=== PATIENT | male | born 1975 | race Caucasian/White ===

== ENCOUNTER → 2018-06-18 | Outpatient (CLI) | payer OTHER ==
[~2018-06-18] MED LIST: CLC100 PO; OXYC7.5T62 PO
[2018-06-18 15:04] LABS: HEMATOCRIT 42.3 % (42-52); HEMOGLOBIN 14.2 g/dL (14.0-18.0); MEAN CELL VOLUME 89.4 fL (80-100); MEAN CORPUSCULAR HGB CONC 33.6 g/dl (32-36); MEAN PLATELET VOLUME 9.7 fL (7.4-10.4); PLATELET COUNT 292 K/uL (130-400); RED CELL DISTRIBUTION WIDTH CV 14.2 % (11.5-14.5); RED CELL DISTRIBUTION WIDTH SD 46.5 fL (36.4-46.3)
--- NOTE | 2018-06-18 15:36 | DIAGNOSTIC IMAGING REPORT ---
(ERIK/BLAD)RETROPERITON COMP HISTORY: Renal insufficiency Z90.5 Solitary kidney, [id number] Chronic kidney disease, sta COMPARISON: None. FINDINGS: Right kidney: Prior nephrectomy Left kidney: 12.4 cm maximum dimension. No evidence for hydronephrosis. Normal corticomedullary differentiation and cortical thickness. Bladder: No bladder wall thickening. The bilateral ureteral jets were identified. IMPRESSION: Normal left renal ultrasound. Prior right nephrectomy. The above report was generated using voice recognition software. It may contain grammatical, syntax or spelling errors. Electronically signed by: Maury Napoles M.D. 06/18/2018 3:35 PM Dictated Date/Time: 06/18/2018 3:34 PM
[2018-06-18 15:40] LABS: ALBUMIN 3.6 gm/dl (3.4-5.0); ALKALINE PHOSPHATASE 68 U/L (45-117); ALT/SGPT 28 U/L (12-78); AST/SGOT 15 U/L (15-37); BLOOD UREA NITROGEN 11 mg/dl (7-18); CALCIUM 8.9 mg/dl (8.5-10.1); CARBON DIOXIDE 27 mmol/L (21-32); CREATININE 1.08 mg/dl (0.60-1.40); GLUCOSE 94 mg/dl (70-99); POTASSIUM 4.1 mmol/L (3.5-5.1); SODIUM 137 mmol/L (136-145); TOTAL PROTEIN 7.4 gm/dl (6.4-8.2)
== END | disposition home or self-care (01) ==
LOC: C.ULTR 14:14
PROVIDERS: ATTEND Internal Medicine Nephrology
DX: N18.3 Chronic kidney disease, stage 3 (moderate) (principal); Z90.5 Acquired absence of kidney

== ENCOUNTER 2023-03-15 20:12 | Observation (INO) ==
[2023-03-15 21:05] LABS: Albumin Globulin Ratio 1.3 (0.9-2); BUN Creatinine Ratio 9.1 (10-20); Bilirubin,Total 0.3 mg/dl (0.2-1.0); Creatinine Clr Calc Pharmacy 87.9 ml/min; Est GFR (Non-African American) 69.9 ml/min; Globulin 3.1 gm/dl (2.5-4.0); Potassium 3.4 mmol/L (3.5-5.1); Total Protein 7.1 gm/dl (6.0-8.3)
[2023-03-15 21:11] LABS: Troponin I High Sensitivity 5.2 pg/ml (0-20)
[2023-03-15 21:28] LABS: Hemoglobin 7.4 g/dl (14.0-18.0); Mean Corpuscular Hemoglobin 26.8 pg (25.0-34.0); Mean Corpuscular Hgb Conc 30.8 g/dL (32.0-36.0); Mean Platelet Volume 9.6 fL (9.4-12.4); Platelet Count 525 K/uL (130-400); RDW Coefficient of Variation 16.4 % (11.5-14.5); RDW Standard Deviation 51.2 fL (36.4-46.3); Red Blood Count 2.76 M/uL (4.70-6.10); White Blood Count 7.87 K/ul (4.8-10.8)
--- NOTE | 2023-03-15 22:44 | Emergency Department Note ---
Impression & Plan Rectal bleeding, Symptomatic anemia, H/O renal cell cancer ED Provider Note NAME: JASPAL HOUSTON AGE: 47 SEX: M : 1975 ARRIVES VIA: Walk-In INFORMANT: Patient, ED PROVIDER(S): Robinson Brink MD CHIEF COMPLAINT: Rectal bleeding MEDICAL DECISION MAKING: Patient presents due to concern for GI bleeding. IV was established blood work was obtained patient was consented for unit of PRBCs. The patient states that he is not actively bleeding at this time of what he describes sounds like this could be hemorrhoidal bleed. No active bleeding present per patient. The patient did have anemia significant for his symptoma tic anemia with hemoglobin of 7. The patient denies any blood thinners. Patient was ordered PPI bolus and drip. I did speak with the on-call hospital service Dr. Villanueva the patient was admitted to medicine service. Critical Care: I have personally spent 35 minutes of critical care time in direct management of this patient. This includes bedside care, interpretation of diagnostic studies, and testing, discussion with consultants, patient, and family members, and other require inpatient management activities. This 35 minutes is in excess of all separately billable procedures. Prior /Outside records reviewed: None Differential diagnosis: Diverticulosis, AVM, coagulopathy, colitis, inflammatory bowel disease, malignancy, [place] tear, esophagitis, peptic ulcer disease, variceal bleed, gastritis, epistaxis, fissure, hemorrhoids, as well as other pathologies. Diagnostics, as interpreted by me: ECG: Normal sinus rhythm, rate 95, wide QRS, right bundle branch block pattern, no ST elevations. Cardiac monitoring: An order was placed for continuous cardiac monitoring. The monitor shows a rate of 97 with sinus rhythm. Patient was placed on pulse oximetry Medical decision rules: None Imaging studies: See below HPI: Patient presents due to concern for GI bleeding. Patient states that the bright red blood and he states that he has no active bleeding. The patient states that this has been occurring over the last month. Patient states that he did try to take some iron pills but he would develop some migraines. The patient denies any NSAID use. Patient denies any alcohol tobacco or drug use. The patient denies any fevers or chills. No nausea vomiting. The patient denies any blood thinner use. No prior history of colonoscopy. The patient denies any known history of IBD or family history of colon cancer. PAST MEDICAL HISTORY: See Below PAST SURGICAL HISTORY: See Below SOCIAL HISTORY: See Below HOME MEDICATIONS: See Below ALLERGIES: See Below VITALS: See Below PHYSICAL EXAMINATION: GENERAL: Wearing glasses, nontoxic. EYE EXAM: Normal conjunctiva. PERRL, no anisocoria and EOM's grossly intact w/o pain. NECK: Supple, no nuchal rigidity, no adenopathy, non-tender. No signs of meningismus. FROM of the neck with good chin to chest and neck extension. No stridor. LUNGS: Clear to auscultation. Normal chest wall mechanics. HEART: NSR, no MRG. ABDOMEN: Abdomen soft, non-tender, no masses, no rebound or guarding. BACK: No CVA TTP. SKIN: No rashes and no bruising. UPPER EXTREMITIES: Upper extremities are grossly normal. LOWER EXTREMITIES: Grossly normal, no edema. NEURO EXAM: A&O x3, cranial nerves II-XII grossly intact, normal speech, moves all 4 extremities. Past Med/Surg History Medical History Cholelithiasis Cholesterolosis of gallbladder Chronic back pain Chronic kidney disease, stage II (mild) Clear cell renal cell carcinoma History of difficult intubation RIGHT LAP HAND ASSISTED NEPHRECTOMY= 05/01/18= NO VIEW WITH DL MAC 3. GLIDESCOPE #4 ATTEMPTED BY INTELLIGENCE SENIOR SERGEANT AND COULD NOT PASS ETT --> MDA SUCCESSFUL GLIDESCOPE #4 WITH GRADE 1 VIEW ETT 8.0 AT [facility] Migraine Obesity Renal cancer S/P RIGHT NEPHRECTOMY 04/2018; NO CHEMO OR RADIATION Vitamin D deficiency Surgical History History of cholecystectomy Hx of kidney removal Family History Family/Other Family history of diabetes mellitus Grandmother Family history of diabetes mellitus Other Cancer Social History Smoking Status: Never smoker Second Hand Exposure: Yes; Do You Dip or Chew Tobacco: Yes; Hx Alcohol Use: No Hx Substance Use: Yes Substance Use Type Other:: medically marijuana Preferred Language: Danish Communication Ability: Effective Visual Impairment: No Limitations Welt Pocket Machine Operator Required: No Beliefs That Will Affect Care: None Current Living Situation: Family Feels Safe at Home: Yes Safety Concerns: Feels Safe At This Time Assistive Devices: None Allergies Allergies Allergy/AdvReac Type Severity Reaction Status Date / Time No Known Drug Allergies Allergy Unknown Verified 03/15/23 22:45 Home Meds Home Medications Medication Instructions Recorded Confirmed multivitamin 1 tab PO DAILY 03/15/23 03/15/23 Previous Rx's Medication Instructions Recorded pantoprazole 40 mg tablet,delayed 40 mg PO DAILY #90 tabs 02/20/23 release Results & Data (ED) Vital Signs Vital Signs - 24 hr 03/15/23 20:16 03/15/23 23:04 03/15/23 23:04 Temperature 36.8 C Temperature Source Temporal Artery Scan Pulse Rate 122 H 98 H 98 H Pulse Rate from SpO2 Sensor 96 H Respiratory Rate 18 21 Respiratory Effort / Characteristics Non-Labored Spontaneous Respiratory Depth Normal Respiratory Pattern Regular Blood Pressure 156/89 H Blood Pressure Mean 111 Pulse Oximetry 100 100 Oxygen Delivery Method Room Air Sepsis Recent Fever Within 48 Hours No Sepsis New/Unexplained Change in Mental Status No Sepsis Action Taken by Nursing No Action Required 03/15/23 23:30 03/16/23 00:00 03/16/23 00:30 Temperature Temperature Source Pulse Rate 82 85 78 Pulse Rate from SpO2 Sensor 80 92 H 80 Respiratory Rate 13 14 8 L Respiratory Effort / Characteristics Respiratory Depth Respiratory Pattern Blood Pressure 139/104 H 163/106 H 139/97 Blood Pressure Mean 115 125 111 Pulse Oximetry 100 100 100 Oxygen Delivery Method Sepsis Recent Fever Within 48 Hours Sepsis New/Unexplained Change in Mental Status Sepsis Action Taken by [facility] Medications Current Medication List: was personally reviewed by me Laboratory Data Attestation: I reviewed the patient's lab results. 03/15/23 20:38 03/15/23 20:38 Lab Results 03/15/23 03/15/23 03/15/23 Range/Units 20:38 20:38 20:38 WBC 7.87 (4.8-10.8) K/ul RBC 2.76 L (4.70-6.10) M/uL Hgb 7.4 L (14.0-18.0) g/dl Hct 24.0 L (42.0-52.0) % MCV 87.0 (80.0-100.0) fL MCH 26.8 (25.0-34.0) pg MCHC 30.8 L (32.0-36.0) g/dL RDW Std Deviation 51.2 H (36.4-46.3) fL RDW Coeff of Linda 16.4 H (11.5-14.5) % Plt Count 525 H (130-400) K/uL MPV 9.6 (9.4-12.4) fL PT Cancelled INR Cancelled APTT Cancelled PTT Ratio Cancelled Sodium (136-145) mmol/L Potassium (3.5-5.1) mmol/L Chloride (98-107) mmol/L Carbon Dioxide (21-32) mmol/L Anion Gap (3-11) BUN (6-23) mg/dl Creatinine (0.6-1.4) mg/dl Est Cr Clr Drug Dosing ml/min Est GFR ( Amer) ml/min Est GFR (Non-Af Amer) ml/min BUN/Creatinine Ratio (10-20) Glucose (70-99(Fasting)) mg/dl Calcium (8.6-10.3) mg/dl Total Bilirubin (0.2-1.0) mg/dl AST (13-39) U/L ALT (7-52) U/L Alkaline Phosphatase (34-104) U/L Troponin I High Sens (0-20) pg/ml Total Protein (6.0-8.3) gm/dl Albumin (3.4-5.0) gm/dl Globulin (2.5-4.0) gm/dl Albumin/Globulin Ratio (0.9-2) Blood Type O Positive Blood Type Recheck Antibody Screen NEGATIVE Crossmatch See Detail 03/15/23 03/16/23 03/16/23 Range/Units 20:38 00:01 00:01 WBC (4.8-10.8) K/ul RBC (4.70-6.10) M/uL Hgb (14.0-18.0) g/dl Hct (42.0-52.0) % MCV (80.0-100.0) fL MCH (25.0-34.0) pg MCHC (32.0-36.0) g/dL RDW Std Deviation (36.4-46.3) fL RDW Coeff of Linda (11.5-14.5) % Plt Count (130-400) K/uL MPV (9.4-12.4) fL PT 10.9 INR 1.0 APTT < 20.0 L PTT Ratio 0.7 Sodium 138 (136-145) mmol/L Potassium 3.4 L (3.5-5.1) mmol/L Chloride 106 (98-107) mmol/L Carbon Dioxide 24 (21-32) mmol/L Anion Gap 8 (3-11) BUN 11 (6-23) mg/dl Creatinine 1.21 (0.6-1.4) mg/dl Est Cr Clr Drug Dosing 87.9 ml/min Est GFR ( Amer) 81.0 ml/min Est GFR (Non-Af Amer) 69.9 ml/min BUN/Creatinine Ratio 9.1 L (10-20) Glucose 129 H (70-99(Fasting)) mg/dl Calcium 9.0 (8.6-10.3) mg/dl Total Bilirubin 0.3 (0.2-1.0) mg/dl AST 17 (13-39) U/L ALT 10 (7-52) U/L Alkaline Phosphatase 61 (34-104) U/L Troponin I High Sens 5.2 (0-20) pg/ml Total Protein 7.1 (6.0-8.3) gm/dl Albumin 4.0 (3.4-5.0) gm/dl Globulin 3.1 (2.5-4.0) gm/dl Albumin/Globulin Ratio 1.3 (0.9-2) Blood Type Blood Type Recheck O Positive Antibody Screen Crossmatch Administered Medications Discontinued Medications Pantoprazole Sodium (Protonix Bolus/Drip) 0 mls @ 1 mls/hr IV ONE STA Stop: 03/15/23 22:48 Last Admin: 03/16/23 04:45 Dose: Not Given Documented By: MYRNA Pantoprazole Sodium 80 mg/ (Dextrose) 120 mls @ 400 mls/hr IV NOW ONE Stop: 03/15/23 23:04 Last Infusion: 03/16/23 00:32 Dose: 0 mls/hr Documented By: Admin: 03/15/23 23:30 Dose: 400 mls/hr Documented By: JEROMY Pantoprazole Sodium 40 mg/ (Dextrose) 100 mls @ 20 mls/hr IV Q5H [facility] Stop: 04/14/23 23:14 Last Admin: 03/16/23 05:35 Dose: Not Given Documented By: Infusion: 03/16/23 04:44 Dose: 0 mg/hr, 0 mls/hr Documented By: Admin: 03/15/23 23:47 Dose: 8 mg/hr, 20 mls/hr Documented By: JEROMY Potassium Chloride (Potassium Chloride Crtab 20 Meq Tabcr) 20 meq PO NOW STA Stop: 03/16/23 04:40 Last Admin: 03/16/23 05:07 Dose: Not Given Documented By: MYRNA Discharge Plan Visit Data Chief Complaint: Rectal Bleed Stated Complaint: BLEEDING,DIZZY, LIGHT HEAD,VOMIT,UNABLE TO EAT ED Provider: Robinson Brink Discharge Problem: Rectal bleeding, Symptomatic anemia, H/O renal cell cancer Patient Disposition: Admitted As Inpatient Discharge Instructions Interventions: ED Discharge Assessment Last Done: 03/16/23 04:03
[2023-03-15] MEDS ORDERED: SODIUM CHLORIDE 0.9% 250 ML IV PRN (22:47)
[2023-03-15] MEDS ORDERED: PANTOprazole 80 MG in DEXTROSE 5% 100 ML IV ONE (22:47)
[2023-03-15] MEDS ORDERED: PANTOPRAZOLE BOLUS/DRIP 1 EACH IV STA (22:47)
[2023-03-15] MEDS: PANTOprazole 40 MG in DEXTROSE 5% 100 ML IV SCH (23:47)
--- NOTE | 2023-03-16 00:32 | History & Physical Report ---
Date of Service March 16, 2023 Assessment & Plan (1) Rectal bleeding: Plan: 47-year-old male presenting with 2 weeks of ongoing rectal bleeding and symptomatic anemia Hgb = 7.4, HCT = 24. Last checked 02/24/2023 Hgb = 11.7, HCT = 36.1. Patient does report constipation with straining. Symptomatic anemia with dizziness, lightheadedness and syncope reported. Admit to medical with telemetry Check CT of the abdomen Keep n.p.o. Maintain 2 large-bore IVs Transfuse 2 units PRBCs now Monitor CBC. Additional transfusions for ongoing bleed, symptomatic anemia or hemoglobin less than 7 GI consultation appreciated F/E/NHep-Lock, potassium repletion with K 20 mEq p.o., n.p.o. for now ProphylaxisSCDs to bilateral lower extremities Codef[place] per discussion with patient Dispositionadmit to medical with telemetry Patient with history of renal cell carcinoma. Reports that he is to follow-up with oncology. Appointment has not been scheduledpatient somewhat lost to follow-up during the COVID-19 pandemic. Should reestablish with oncology and follow as directed History of Present Illness Chief Complaint: Rectal bleeding Primary Care Provider: Benigno Santo III, MARIA ESTHER Mr. Mcmullen is a 47-year-old male with history of renal cell carcinoma status post nephrectomy presenting with hematochezia. Patient reports passage of dark, thick blood from his rectum for the last 1-1/2 to 2 weeks. He reports that the blood fills the toilet bowl. He has been trying not to have a bowel movement because he is afraid of bleeding. Has some rectal pain with defecation but denies abdominal discomfort. Also reports dizziness, lightheadedness, dyspnea on exertion and several episodes of syncope over the last several days. He has had nausea with nonbloody emesis as well on occasion In the ER he is afebrile, hemodynamically stable. Laboratory work-up with anemia Hgb = 7.4 Allergies Allergy/AdvReac Type Severity Reaction Status Date / Time No Known Drug Allergies Allergy Unknown Verified 03/15/23 22:45 Home Medications Medication Instructions Recorded Confirmed Type pantoprazole 40 mg tablet,delayed 40 mg PO DAILY #90 tabs 02/20/23 03/15/23 Rx release multivitamin 1 tab PO DAILY 03/15/23 03/15/23 History Past Med/Surg History Medical History Cholelithiasis Cholesterolosis of gallbladder Chronic back pain Chronic kidney disease, stage II (mild) Clear cell renal cell carcinoma History of difficult intubation RIGHT LAP HAND ASSISTED NEPHRECTOMY= 05/01/18= NO VIEW WITH DL MAC 3. GLIDESCOPE #4 ATTEMPTED BY INSTRUMENT MAKER AND COULD NOT PASS ETT --> MDA SUCCESSFUL GLIDESCOPE #4 WITH GRADE 1 VIEW ETT 8.0 AT [facility] Migraine Obesity Renal cancer S/P RIGHT NEPHRECTOMY 04/2018; NO CHEMO OR RADIATION Vitamin D deficiency Surgical History History of cholecystectomy Hx of kidney removal Family History Family/Other Family history of diabetes mellitus Grandmother Family history of diabetes mellitus Other Cancer Social History Smoking Status: Never smoker Second Hand Exposure: Yes; Do You Dip or Chew Tobacco: Yes (1 CAN PER 2-3 DAYS); Hx Alcohol Use: Yes (NOT PAST 6 MONTHS-WAS DAILY OR Q DAYS) Alcohol type: beer Hx Substance Use: No Preferred Language: Mexican Communication Ability: Effective Visual Impairment: No Limitations Cat Tender Required: No Beliefs That Will Affect Care: None Current Living Situation: Parent Feels Safe at Home: Yes Assistive Devices: Glasses Review of Systems Review of Systems: All systems reviewed & are unremarkable except as noted in HPI & below Physical Exam Physical Exam: General: patient resting comfortably, NAD, non-toxic in appearance, AA&O x 4 Skin: pale, warm, dry, intact, no rashes or lesions HEENT: NC/AT, PERRL, EOMI, anicteric sclera, conjunctiva without injection, external ear normal to inspection and nontender, nares patent, moist mucus membranes, dentition intact, no oropharyngeal lesions, neck supple, trachea m idline, no LAD, no thyromegaly, no JVD Heart: +S1/S2, regular, no m/r/g Lungs: equal air entry bilaterally, no rales/rhonchi/wheezes Abd: +BS, soft, NT/ND, no masses/organomegaly/ascites Ext: warm, 2+ pulses in UE/LE bilaterally, no clubbing/cyanosis or edema Neuro: nonfocal, patient AA&O x 4, speech intact, no facial droop, moving all extremities on command with equal strength 5/5 Results & Data Results & Data Vital Signs (Past 12 Hours) Vital Signs Temp Pulse Resp BP Pulse Ox O2 Del Method 03/15/23 23:04 98 H 03/15/23 20:16 36.8 C 122 H 18 156/89 H 100 Room Air Laboratory Results Laboratory Results WBC 7.87 K/ul (4.8-10.8) 03/15/23 20:38 RBC 2.76 M/uL (4.70-6.10) L 03/15/23 20:38 Hgb 7.4 g/dl (14.0-18.0) L 03/15/23 20:38 Hct 24.0 % (42.0-52.0) L 03/15/23 20:38 MCV 87.0 fL (80.0-100.0) 03/15/23 20:38 MCH 26.8 pg (25.0-34.0) 03/15/23 20:38 MCHC 30.8 g/dL (32.0-36.0) L 03/15/23 20:38 RDW Std Deviation 51.2 fL (36.4-46.3) H 03/15/23 20:38 RDW Coeff of Linda 16.4 % (11.5-14.5) H 03/15/23 20:38 Plt Count 525 K/uL (130-400) H 03/15/23 20:38 MPV 9.6 fL (9.4-12.4) 03/15/23 20:38 PT 10.9 Seconds (9.0-12.0) 03/16/23 00:01 INR 1.0 (0.9-1.1) 03/16/23 00:01 APTT < 20.0 Seconds (21.0-31.0) L 03/16/23 00:01 PTT Ratio 0.7 03/16/23 00:01 Sodium 138 mmol/L (136-145) 03/15/23 20:38 Potassium 3.4 mmol/L (3.5-5.1) L 03/15/23 20:38 Chloride 106 mmol/L (98-107) 03/15/23 20:38 Carbon Dioxide 24 mmol/L (21-32) 03/15/23 20:38 Anion Gap 8 (3-11) 03/15/23 20:38 BUN 11 mg/dl (6-23) 03/15/23 20:38 Creatinine 1.21 mg/dl (0.6-1.4) 03/15/23 20:38 Est Cr Clr Drug Dosing 87.9 ml/min 03/15/23 20:38 Est GFR ( Amer) 81.0 ml/min 03/15/23 20:38 Est GFR (Non-Af Amer) 69.9 ml/min 03/15/23 20:38 BUN/Creatinine Ratio 9.1 (10-20) L 03/15/23 20:38 Glucose 129 mg/dl (70-99(Fasting)) H 03/15/23 20:38 Calcium 9.0 mg/dl (8.6-10.3) 03/15/23 20:38 Total Bilirubin 0.3 mg/dl (0.2-1.0) 03/15/23 20:38 AST 17 U/L (13-39) 03/15/23 20:38 ALT 10 U/L (7-52) 03/15/23 20:38 Alkaline Phosphatase 61 U/L (34-104) 03/15/23 20:38 Troponin I High Sens 5.2 pg/ml (0-20) 03/15/23 20:38 Total Protein 7.1 gm/dl (6.0-8.3) 03/15/23 20:38 Albumin 4.0 gm/dl (3.4-5.0) 03/15/23 20:38 Globulin 3.1 gm/dl (2.5-4.0) 03/15/23 20:38 Albumin/Globulin Ratio 1.3 (0.9-2) 03/15/23 20:38 SARS-CoV-2, RNA, NAAT NEGATIVE (NEGATIVE) 03/16/23 02:34 Blood Type O Positive 03/15/23 20:38 Blood Type Recheck O Positive 03/16/23 00:01 Antibody Screen NEGATIVE 03/15/23 20:38 Crossmatch See Detail 03/15/23 20:38 Code Status & VTE Plan VTE Prophylaxis Plan VTE Prophylaxis will be ordered: Yes PG Care Time/CCT Total # of Minutes Spent Total Time Spent with Patient: Total time spent is greater than 50% in coordination of care (as documented) at patient's floor/unit and/or counseling patient: Coding Level of Care Code 52787 INT INP/OBS CARE 2/55MIN Diagnoses Rectal bleeding K62.5
[2023-03-16 00:58] LABS: Partial Thromboplastin Ratio 0.7; Prothrombin Time 10.9 Seconds (9.0-12.0)
[2023-03-16 01:31] LABS: Partial Thromboplastin Time < 20.0 Seconds (21.0-31.0)
[2023-03-16] MEDS ORDERED: POTASSIUM CHLORIDE CRTAB 20 MEQ TABCR PO STA (04:39)
[2023-03-16] MEDS ORDERED: SODIUM CHLORIDE 0.9% 250 ML IV PRN ×2 (04:39→18:15)
[2023-03-16] MEDS ORDERED: ONDANSETRON INJ 2 MG/ML 2 ML VIAL IV PRN (04:39)
[2023-03-16] MEDS ORDERED: ACETAMINOPHEN 325 MG TAB PO PRN (04:39)
[2023-03-16] MEDS: PANTOprazole 40 MG in DEXTROSE 5% 100 ML IV SCH (05:35)
--- NOTE | 2023-03-16 08:47 | Gastrointestinal Consultation ---
I have interviewed and examined the patient and reviewed the medical records as well as discussed with MARIA ESTHER Owusu about her findings and plan Subjective: Two weeks of painless rectal bleeding only with bowel movements Physical exam: Abdomen-soft, nontender, normal bowel sounds Chart review: Hgb 7.[address] pending I agree with the assessment as outlined in this note. I add in that although it is rare that hemorrhoids will lead to anemia his description of his bleeding is consistent with hemorrhoidal bleeding. I plan colonoscopy tomorrow. Procedure and risks discussed with patient. As the supervising physician I have spent 25 minutes of discrete time performing the activities of this consultation which include, but are not limited to, review of the medical record, obtaining a history, physical examination and entering the information into the electronic record. MARIA ESTHER Owusu reports spending 40 minutes of discrete time with the activities of the consultation Date of Consultation March 16, 2023 Assessment & Plan (1) Rectal bleeding: Lower GI bleeding: Patient has a 2-week history of large quantities of rectal bleeding with each bowel movement. Does have history of hemorrhoids but no hemorrhoidal bleeding noted on exam today. The drinking prep in anticipation of CT abdomen pelvis. Anticipate patient will require colonoscopy. Admission Hemoglobin 7.4, hematocrit 24.0. He has received 1 unit of packed red blood cells. Anticipate colonoscopy tomorrow, would maintain NPO at this time. Case reviewed with Dr. Perdomo. Please refer to supervising physician addendum for further recommendations. I have spent 40 minutes of discrete time performing the activities of this visit which include but are not limited to review of the medical record, obtaining a history, physical exam, and entering information in the electronic record. (2) Symptomatic anemia: History of Present Illness Attending Physician: Jazzy Lainez MD History of Present Illness The patient is a 47-year-old male with past medical history to include right renal cell carcinoma status post nephrectomy who presents with a 2-week history of ongoing rectal bleeding and symptomatic anemia. Admission hemoglobin 7.4 hematocrit 24.0 he has had 1 packed red blood cell unit administered. He reports that he has been having blood in his bowel movements every bowel movement for the last 2 weeks. On average having 1 bowel movement a day although he has not been moving his bowels last several days in an attempt to stop the bleeding. Reports lower abdominal discomfort. He has had nausea and vomiting episodes throughout the last 2 weeks. He also reports syncopal episodes. Denies any reflux although was seen by PCP in the last month and given reflux medication. He has never had a colonoscopy previously. Denies hematemesis. He does report history of bleeding hemorrhoids. He denies use of anticoagulants, aspirin or NSAID use. Lifetime non-smoker. Denies alcohol intake in the last 5 years. He does have a medical marijuana card but denies other recreational drug use. 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 He is unmarried and has no children. 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 GLIDESCOPE #4 ATTEMPTED BY AERONAUTICAL ENGINEERING TECHNOLOGIST AND COULD NOT PASS ETT --> MDA SUCCESSFUL GLIDESCOPE #4 WITH GRADE 1 VIEW ETT 8.0 AT [facility] Migraine Obesity Renal cancer S/P RIGHT NEPHRECTOMY 04/2018; NO CHEMO OR RADIATION Vitamin D deficiency Surgical History History of cholecystectomy Hx of kidney removal Family History Family/Other Family history of diabetes mellitus Grandmother Family history of diabetes mellitus Other Cancer Social History Smoking Status: Never smoker Second Hand Exposure: Yes; Do You Dip or Chew Tobacco: Yes; Hx Alcohol Use: No Hx Substance Use: Yes Substance Use Type Other:: medically marijuana Preferred Language: Nepalese Communication Ability: Effective Visual Impairment: No Limitations Color Shop Helper Required: No Beliefs That Will Affect Care: None Current Living Situation: Family Feels Safe at Home: Yes Safety Concerns: Feels Safe At This Time Assistive Devices: Glasses Review of Systems Review of Systems: All systems reviewed & are unremarkable except as noted in Subjective Physical Exam Constitutional: WD/WN, vitals as above Respiratory: normal respiratory effort, lungs clear to auscultation Gastrointestinal (Abdomen): Inspection/Auscultation: abdomen normal to inspection and normal bowel sounds; abdomen not distended Percussion/Palpation: + abdomen tender (lower abdomen) and abdomen soft; no guarding and abdomen not rigid Rectal Exam: + hemorrhoids (external without bleeding); normal sphincter tone Slick Wall RN. Limited MUNA without mass or obstruction Results & Data Vital Signs (Past 12 Hours) Vital Signs Temp Pulse Pulse Resp BP BP Pulse Ox 03/16/23 06:27 36.6 C 88 16 120/82 98 03/16/23 05:57 36.7 C 82 17 111/74 97 03/16/23 05:42 36.6 C 87 18 118/82 97 03/16/23 05:25 36.7 C 89 18 119/77 97 03/16/23 04:39 36.7 C 86 16 142/89 H 100 03/16/23 03:32 36.9 C 79 18 141/84 H 100 03/16/23 03:17 89 03/16/23 03:00 84 18 142/81 H 100 03/16/23 02:32 36.8 C 80 18 136/94 100 03/16/23 02:02 36.8 C 88 18 144/90 H 100 03/16/23 01:47 36.8 C 88 18 144/94 H 99 03/16/23 01:30 90 12 147/95 H 100 03/16/23 01:00 86 7 L 143/88 H 100 03/16/23 00:30 78 8 L 139/97 100 03/16/23 00:00 85 14 163/106 H 100 03/15/23 23:30 82 13 139/104 H 100 03/15/23 23:04 98 H 21 100 03/16/23 01:31 36.9 C 84 18 147/95 H 100 03/15/23 23:04 98 H O2 Del Method 03/16/23 06:27 03/16/23 05:57 03/16/23 05:42 03/16/23 05:25 03/16/23 04:39 Room Air 03/16/23 03:32 03/16/23 03:17 03/16/23 03:00 Room Air 03/16/23 02:32 03/16/23 02:02 03/16/23 01:47 03/16/23 01:30 03/16/23 01:00 03/16/23 00:30 03/16/23 00:00 03/15/23 23:30 03/15/23 23:04 03/16/23 01:31 03/15/23 23:04 Laboratory Results Laboratory Results - last 24 hr 03/15/23 03/15/23 03/15/23 20:38 20:38 20:38 WBC 7.87 RBC 2.76 L Hgb 7.4 L Hct 24.0 L MCV 87.0 MCH 26.8 MCHC 30.8 L RDW Std Deviation 51.2 H RDW Coeff of Linda 16.4 H Plt Count 525 H MPV 9.6 PT Cancelled INR Cancelled APTT Cancelled PTT Ratio Cancelled Sodium Potassium Chloride Carbon Dioxide Anion Gap BUN Creatinine Est Cr Clr Drug Dosing Est GFR ( Amer) Est GFR (Non-Af Amer) BUN/Creatinine Ratio Glucose Calcium Total Bilirubin AST ALT Alkaline Phosphatase Troponin I High Sens Total Protein Albumin Globulin Albumin/Globulin Ratio SARS-CoV-2, RNA, NAAT Blood Type O Positive Blood Type Recheck Antibody Screen NEGATIVE Crossmatch See Detail 03/15/23 03/16/23 03/16/23 20:38 00:01 00:01 WBC RBC Hgb Hct MCV MCH MCHC RDW Std Deviation RDW Coeff of Linda Plt Count MPV PT 10.9 INR 1.0 APTT < 20.0 L PTT Ratio 0.7 Sodium 138 Potassium 3.4 L Chloride 106 Carbon Dioxide 24 Anion Gap 8 BUN 11 Creatinine 1.21 Est Cr Clr Drug Dosing 87.9 Est GFR ( Amer) 81.0 Est GFR (Non-Af Amer) 69.9 BUN/Creatinine Ratio 9.1 L Glucose 129 H Calcium 9.0 Total Bilirubin 0.3 AST 17 ALT 10 Alkaline Phosphatase 61 Troponin I High Sens 5.2 Total Protein 7.1 Albumin 4.0 Globulin 3.1 Albumin/Globulin Ratio 1.3 SARS-CoV-2, RNA, NAAT Blood Type Blood Type Recheck O Positive Antibody Screen Crossmatch 03/16/23 02:34 WBC RBC Hgb Hct MCV MCH MCHC RDW Std Deviation RDW Coeff of Linda Plt Count MPV PT INR APTT PTT Ratio Sodium Potassium Chloride Carbon Dioxide Anion Gap BUN Creatinine Est Cr Clr Drug Dosing Est GFR ( Amer) Est GFR (Non-Af Amer) BUN/Creatinine Ratio Glucose Calcium Total Bilirubin AST ALT Alkaline Phosphatase Troponin I High Sens Total Protein Albumin Globulin Albumin/Globulin Ratio SARS-CoV-2, RNA, NAAT NEGATIVE Blood Type Blood Type Recheck Antibody Screen Crossmatch
[2023-03-16 10:17] LABS: Basophils # (auto) 0.04 K/uL (0-0.2); Basophils % (auto) 0.6 %; Eosinophils # (auto) 0.03 K/uL (0-0.50); Eosinophils % (auto) 0.5 %; Hematocrit (blood only) 27.5 % (42.0-52.0); Hemoglobin 8.9 g/dl (14.0-18.0); Immature Granulocytes # (auto) 0.01 K/uL (0.01-0.20); Immature Granulocytes % (auto) 0.2 %; Lymphocytes # (auto) 1.25 K/uL (1.2-3.4); Lymphocytes % (auto) 19.1 %; Mean Corpuscular Hemoglobin 27.6 pg (25.0-34.0); Mean Corpuscular Hgb Conc 32.4 g/dL (32.0-36.0); Mean Corpuscular Volume 85.1 fL (80.0-100.0); Mean Platelet Volume 9.3 fL (9.4-12.4); Monocytes # (auto) 0.65 K/uL (0.11-0.59); Monocytes % (auto) 9.9 %; Neutrophils # (auto) 4.58 K/uL (1.40-6.50); Neutrophils % (auto) 69.7 %; Platelet Count 424 K/uL (130-400); RDW Coefficient of Variation 15.2 % (11.5-14.5); RDW Standard Deviation 46.5 fL (36.4-46.3); Red Blood Count 3.23 M/uL (4.70-6.10); White Blood Count 6.56 K/ul (4.8-10.8)
[2023-03-16 10:33] LABS: BUN Creatinine Ratio 7.8 (10-20); Calcium 8.9 mg/dl (8.6-10.3); Creatinine Clr Calc Pharmacy 92.2 ml/min; Est GFR (African American) 86.1 ml/min; Est GFR (Non-African American) 74.3 ml/min; Potassium 3.9 mmol/L (3.5-5.1)
--- NOTE | 2023-03-16 10:41 | Electrocardiogram Report ---
Test Reason : Blood Pressure : / mmHG Vent. Rate : 095 BPM Atrial Rate : 095 BPM P-R Int : 172 ms QRS Dur : 142 ms QT Int : 360 ms P-R-T Axes : 053 025 013 degrees QTc Int : 452 ms Normal sinus rhythm Right bundle branch block Abnormal ECG When compared with ECG of 26-AUG-2019 21:52, IA interval has decreased HR has decreased Confirmed by Saroj Olson ([id number]) on 03/16/2023 10:41:14 AM Referred By: REFERRED SELF Confirmed By:Saroj Olson
--- NOTE | 2023-03-16 15:05 | CT Scan Report ---
CT OF THE ABDOMEN AND PELVIS WITH ORAL CONTRAST CLINICAL HISTORY: Abdominal pain. Lower GI bleed. COMPARISON STUDY: CT of the abdomen and pelvis August 19, 2019. TECHNIQUE: Axial images of the abdomen and pelvis were obtained without IV contrast. Oral contrast wa s administered. Automated exposure control was utilized for the study. A dose lowering technique was utilized adhering to the principles of ALARA. FINDINGS: Lung bases are unremarkable. No pneumatosis, free air or portal venous gas is present. Eval uation of the abdomen and pelvis is suboptimal on this unenhanced exam. Several hypodense hepatic les ions are similar to prior CT. These are probably benign. There is no biliary ductal dilatation status post cholecystectomy. There is no abnormality within the right nephrectomy bed. Spleen, adrenal glan ds, left kidney and pancreas are unremarkable. There is no pancreatic ductal dilatation. There is no evidence for a bowel obstruction. No bowel wall thickening identified on unenhanced exam. There is no lymphadenopathy. There is no ascites. No acute fractures are present. No suspicious lesions are iden tified within the visualized skeletal structures. IMPRESSION: 1. No acute process within the abdomen or pelvis on unenhanced exam. 2. No bowel obstruction. No bowel wall thickening identified. 3. No abnormality within the right nephrectomy bed. ACT 112: Negative or not required by law. Electronically signed by: Saji Boggs M.D. 03/16/2023 3:04 PM
--- NOTE | 2023-03-16 18:19 | History & Physical Bridge Note ---
Date of Service March 16, 2023 History & Physical Bridge Note I have examined the patient, reviewed the History & Physical and in the interval since the performance of the History & Physical I have noted the following changes of clinical significance: Pt has not had any further rectal bleeding today but reports it only happens when he sits down on the toilet and a lot of blood comes rushing out. No abd pains or rectal pains, no nausea. no fevers. No FH of IBD or GI related CA. No CP, SOB. Had 2 units PRBCs overnight. He is worried that with the bowel prep he will have a lot of bleeding and pass out. Gave reassurance that I will check a CBC now and typ and cross and have 2 units PRBCs on standby in case hgb < 7 or hgb<8 with active bleeding. VSS Tele with NSR rates 80s NAD, anxious,irritable NAD, AAOx3 RRR no mgr CTAB no wcr Abd +BS soft NT ND Ext no edema Skin no rashes, multiple tattoos -check CBC now , transfuse as needed as above -follow CBC, BMP in AM -colonoscopy prep tonight and NPO after midnight, colonoscopy for tomorrow Discussed all care with his mom at the bedside
[2023-03-16] MEDS: POLYETHYLENE (MIRALAX) 17 GM PACK PO SCH (18:20)
[2023-03-16 18:44] LABS: Hematocrit (blood only) 29.5 % (42.0-52.0); Hemoglobin 9.5 g/dl (14.0-18.0); Mean Corpuscular Hemoglobin 27.9 pg (25.0-34.0); Mean Corpuscular Hgb Conc 32.2 g/dL (32.0-36.0); Mean Corpuscular Volume 86.5 fL (80.0-100.0); Mean Platelet Volume 9.3 fL (9.4-12.4); Platelet Count 435 K/uL (130-400); RDW Coefficient of Variation 15.3 % (11.5-14.5); RDW Standard Deviation 47.8 fL (36.4-46.3); Red Blood Count 3.41 M/uL (4.70-6.10); White Blood Count 7.48 K/ul (4.8-10.8)
[2023-03-17] MEDS: POLYETHYLENE (MIRALAX) 17 GM PACK PO SCH (05:47)
[2023-03-17 07:18] LABS: Hematocrit (blood only) 30.4 % (42.0-52.0); Hemoglobin 9.7 g/dl (14.0-18.0); Mean Corpuscular Hemoglobin 27.6 pg (25.0-34.0); Mean Corpuscular Hgb Conc 31.9 g/dL (32.0-36.0); Mean Corpuscular Volume 86.6 fL (80.0-100.0); Mean Platelet Volume 9.5 fL (9.4-12.4); Platelet Count 439 K/uL (130-400); RDW Coefficient of Variation 15.6 % (11.5-14.5); Red Blood Count 3.51 M/uL (4.70-6.10)
[2023-03-17 07:37] LABS: BUN Creatinine Ratio 8.5 (10-20); Bilirubin Direct 0.2 mg/dl (0-0.2); Bilirubin,Total 1.1 mg/dl (0.2-1.0); Calcium 9.3 mg/dl (8.6-10.3); Creatinine Clr Calc Pharmacy 89.8 ml/min; Est GFR (African American) 83.5 ml/min; Potassium 3.7 mmol/L (3.5-5.1)
--- NOTE | 2023-03-17 09:08 | Gastroenterology Progress Note ---
Supervising physicians note I have discussed plan of care with MARIA ESTHER Owusu and agree with her assessment. He will have a colonoscopy today. Date of Service March 17, 2023 Assessment & Plan (1) Rectal bleeding: Plan: Lower GI bleeding: Patient has a 2-week history of large quantities of rectal bleeding with each bowel movement. Admission Hemoglobin 7.4, hematocrit 24.0. He has received 1 unit of packed red blood cells. Patient blood counts are stable this morning 9.7 and 30.4. Colonoscopy planned for later this afternoon. He has completed colonoscopy prep. Procedure and risks explained to patient which include but not limited to medication reaction, bleeding, perforation, aspiration, and missed lesions. Verbalizes understanding but is frustrated with waiting and state he will leave if not performed by noon. He was asked to stay and his procedure should be around 1300 today. Nursing aware. Case reviewed with Dr. Perdomo. Please refer to supervising physician addendum for further recommendations. I have spent 20 minutes of discrete time performing the activities of this visit which include but are not limited to review of the medical record, obtaining a history, physical exam, and entering information in the electronic record. (2) Symptomatic anemia: Admission and Anticipated Discharge Date Admission Date: March 16, 2023 Subjective Patient awake alert and oriented this morning. He is quite frustrated as he has not had his colonoscopy yet. He wants this done by noon or he reports he will sign out AMA. He has completed prep for colonoscopy so he was encouraged to stay for his procedure this afternoon. He denies abdominal pain, nausea, vomiting, bowel movement today. Review of Systems Review of Systems: All systems reviewed & are unremarkable except as noted in Subjective Physical Exam Physical Exam: patient declines physical exam assessment Results & Data Vital Signs (Past 12 Hours) Vital Signs Temp Pulse Pulse Pulse Resp BP Pulse Ox 03/17/23 07:39 36.6 C 78 16 121/79 100 03/17/23 03:59 36.8 C 83 18 118/79 99 03/16/23 23:20 85 03/16/23 23:36 36.7 C 78 18 132/76 98 03/16/23 22:01 37.1 C 84 20 120/79 98 O2 Del Method 03/17/23 07:39 Room Air 03/17/23 03:59 Room Air 03/16/23 23:20 03/16/23 23:36 Room Air 03/16/23 22:01 Room Air Laboratory Results Laboratory Results - last 24 hr 03/16/23 03/16/23 03/16/23 09:54 09:54 18:32 WBC 6.56 7.48 RBC 3.23 L 3.41 L Hgb 8.9 L 9.5 L Hct 27.5 L 29.5 L MCV 85.1 86.5 MCH 27.6 27.9 MCHC 32.4 32.2 RDW Std Deviation 46.5 H 47.8 H RDW Coeff of [place] 15.2 H 15.3 H Plt Count 424 H 435 H MPV 9.3 L 9.3 L Immature Gran % (Auto) 0.2 Neut % (Auto) 69.7 Lymph % (Auto) 19.1 [place] % (Auto) 9.9 Eos % (Auto) 0.5 Baso % (Auto) 0.6 Neut # (Auto) 4.58 Lymph # (Auto) 1.25 [place] # (Auto) 0.65 H Eos # (Auto) 0.03 Baso # (Auto) 0.04 Immature Gran # (Auto) 0.01 Sodium 138 Potassium 3.9 Chloride 107 Carbon Dioxide 25 Anion Gap 6 BUN 9 Creatinine 1.15 Est Cr Clr Drug Dosing 92.2 Est GFR ( Amer) 86.1 Est GFR (Non-Af Amer) 74.3 BUN/Creatinine Ratio 7.8 L Glucose 99 Calcium 8.9 Total Bilirubin Direct Bilirubin AST ALT Alkaline Phosphatase Total Protein Albumin 03/17/23 03/17/23 06:57 06:57 WBC 6.80 RBC 3.51 L Hgb 9.7 L Hct 30.4 L MCV 86.6 MCH 27.6 MCHC 31.9 L RDW Std Deviation 49.0 H RDW Coeff of Linda 15.6 H Plt Count 439 H MPV 9.5 Immature Gran % (Auto) Neut % (Auto) Lymph % (Auto) [place] % (Auto) Eos % (Auto) Baso % (Auto) Neut # (Auto) Lymph # (Auto) [place] # (Auto) Eos # (Auto) Baso # (Auto) Immature Gran # (Auto) Sodium 139 Potassium 3.7 Chloride 107 Carbon Dioxide 25 Anion Gap 7 BUN 10 Creatinine 1.18 Est Cr Clr Drug Dosing 89.8 Est GFR ( Amer) 83.5 Est GFR (Non-Af Amer) 72.0 BUN/Creatinine Ratio 8.5 L Glucose 92 Calcium 9.3 Total Bilirubin 1.1 H D Direct Bilirubin 0.2 AST 17 ALT 9 Alkaline Phosphatase 62 Total Protein 7.0 Albumin 4.0 Diagnostic Findings Abdomen/Pelvis CT 03/16/23 04:39 CT OF THE ABDOMEN AND PELVIS WITH ORAL CONTRAST CLINICAL HISTORY: Abdominal pain. Lower GI bleed. COMPARISON STUDY: CT of the abdomen and pelvis August 19, 2019. TECHNIQUE: Axial images of the abdomen and pelvis were obtained without IV contrast. Oral contrast was administered. Automated exposure control was utilized for the study. A dose lowering technique was utilized adhering to the principles of ALARA. FINDINGS: Lung bases are unremarkable. No pneumatosis, free air or portal venous gas is present. Evaluation of the abdomen and pelvis is suboptimal on this unenhanced exam. Several hypodense hepatic lesions are similar to prior CT. These are probably benign. There is no biliary ductal dilatation status post cholecystectomy. There is no abnormality within the right nephrectomy bed. Spleen, adrenal glands, left kidney and pancreas are unremarkable. There is no pancreatic ductal dilatation. There is no evidence for a bowel obstruction. No bowel wall thickening identified on unenhanced exam. There is no lymphadenopathy. There is no ascites. No acute fractures are present. No suspicious lesions are identified within the visualized skeletal structures. IMPRESSION: 1. No acute process within the abdomen or pelvis on unenhanced exam. 2. No bowel obstruction. No bowel wall thickening identified. 3. No abnormality within the right nephrectomy bed. ACT 112: Negative or not required by law. Electronically signed by: Saji Boggs M.D. 03/16/2023 3:04 PM
[2023-03-17] MEDS ORDERED: PROPOFOL IV EMULSION 10 MG/ML 20 ML VIAL IV ONE ×2 (12:45→13:09)
[2023-03-17] MEDS ORDERED: LIDOCAINE 2% 2 ML VIAL/AMP(20MG/ML) INFIL ONE (12:45)
[2023-03-17] MEDS ORDERED: MIDAZOLAM HCL 1 MG/ML 2ML VIAL ONE (12:45)
[2023-03-17] MEDS ORDERED: ONDANSETRON INJ 2 MG/ML 2 ML VIAL ONE (12:46)
--- NOTE | 2023-03-17 12:46 | Anesthesiology Consultation ---
Date of Service March 17, 2023 Assessment & Plan Chart Review Chart Review: Acceptable Risk for Surgery and Patient NOT seen in Pre Admission Testing Consults Requested none ASA ASA3 Proposed Anesthesia Anesthesia Type: MAC Risk / Benefits Reviewed With: PT / POA / Parent / Guardian, Accepts Plan and Informed Consent Obtained History Surgery Operation Date: 03/17/23 16:30 Proposed Procedures p Colonoscopy Dr. Leanne Perdomo Jr, MD Height/Weight Height: 6 ft Weight: 93.3 kg Allergies Allergy/AdvReac Type Severity Reaction Status Date / Time No Known Drug Allergies Allergy Unknown Verified 03/15/23 22:45 Medications Home Medications Medication Instructions Recorded Confirmed Last Taken pantoprazole 40 mg tablet,delayed 40 mg PO DAILY #90 tabs 02/20/23 03/15/23 Unknown release multivitamin 1 tab PO DAILY 03/15/23 03/15/23 Unknown Past Medical History Medical History Cholelithiasis Cholesterolosis of gallbladder Chronic back pain Chronic kidney disease, stage II (mild) Clear cell renal cell carcinoma History of difficult intubation RIGHT LAP HAND ASSISTED NEPHRECTOMY= 05/01/18= NO VIEW WITH DL MAC 3. GLIDESCOPE #4 ATTEMPTED BY MERCHANDISE FLOW ASSOCIATE AND COULD NOT PASS ETT --> MDA SUCCESSFUL GLIDESCOPE #4 WITH GRADE 1 VIEW ETT 8.0 AT [facility] Migraine Obesity Renal cancer S/P RIGHT NEPHRECTOMY 04/2018; NO CHEMO OR RADIATION Vitamin D deficiency Exercise / Class Metabolic Activity II 4-5 Yardwork/Stairs/Walk up hill Past Family History Family History Family/Other Family history of diabetes mellitus Grandmother Family history of diabetes mellitus Other Cancer Past Surgical History Surgical History History of cholecystectomy Hx of kidney removal Past Anesthesia History No Hx of Anesthesia Complications and No Family Hx of Anesthesia Complications History of PONV No Hx of PONV and No Hx of Motion Sickness Social History Smoking Status: Never smoker Do You Dip or Chew Tobacco: Yes Hx Alcohol Use: No Alcohol type: beer Hx Substance Use: Yes Substance Use Type Other:: medically marijuana Physical Exam Vital Signs Last Vital Signs Temp 36.7 C 03/17/23 12:24 Pulse 70 03/17/23 12:24 Resp 18 03/17/23 12:24 BP 134/83 03/17/23 12:24 Pulse Ox 100 03/17/23 12:24 O2 Del Method Room Air 03/17/23 12:24 Constitutional + obese; no acute distress ENMT Mouth: + dentition abnormality, + dental caries, + poor dentition and + chipped teeth Thyromental Distance: < 3.5 Finger Breadths Mallampati Class: III Neck normal visual inspection, trachea midline and + facial hair; neck extension not limited Respiratory normal respiratory effort Auscultation: lungs clear to auscultation bilaterally Cardiovascular Rate/Rhythm: regular rate and regular rhythm Heart Sounds: no murmur Vessels: no carotid bruit Musculoskeletal Spine: + limited cervical ROM; no pain with cervical ROM Extremities: full ROM of extremities Neurologic moves all extremities Motor/Sensory: no sensory deficit Psychiatric Orientation: alert and oriented x 3 Testing Laboratory Results 03/17/23 06:57 03/17/23 06:57 PT 10.9 Seconds (9.0-12.0) 03/16/23 00:01 INR 1.0 (0.9-1.1) 03/16/23 00:01 APTT < 20.0 Seconds (21.0-31.0) L 03/16/23 00:01 Blood Type O Positive 03/15/23 20:38 Antibody Screen NEGATIVE 03/15/23 20:38 Electrocardiogram Date: 03/15/23 Findings: + NSR @ (@ 95) and + RBBB
[2023-03-17] MEDS ORDERED: ATROPINE SULFATE 0.1 MG/ML 10ML SYR IV PRN (12:48)
[2023-03-17] MEDS ORDERED: ePHEDrine sulfate 50 MG/ML AMP IV PRN (12:48)
--- NOTE | 2023-03-17 12:49 | History & Physical Report ---
Date of Service March 17, 2023 Assessment & Plan (1) Rectal bleeding: Plan: Pleasant man who is here with rectal bleeding. Procedure and risks discussed with patient. he agrees to proceed. Admission and Anticipated Discharge Date Admission Date: March 16, 2023 History of Present Illness Chief Complaint: rectal bleeding Primary Care Provider: Benigno Santo III, MARIA ESTHER 47 year old man admitted with anemia related to rectal bleeding. We plan c olonoscopy Allergies Allergy/AdvReac Type Severity Reaction Status Date / Time No Known Drug Allergies Allergy Unknown Verified 03/15/23 22:45 Home Medications Medication Instructions Recorded Confirmed Type pantoprazole 40 mg tablet,delayed 40 mg PO DAILY #90 tabs 02/20/23 03/15/23 Rx release multivitamin 1 tab PO DAILY 03/15/23 03/15/23 History Past Med/Surg History Medical History Cholelithiasis Cholesterolosis of gallbladder Chronic back pain Chronic kidney disease, stage II (mild) Clear cell renal cell carcinoma History of difficult intubation RIGHT LAP HAND ASSISTED NEPHRECTOMY= 05/01/18= NO VIEW WITH DL MAC 3. GLIDESCOPE #4 ATTEMPTED BY LENS ASSORTER AND COULD NOT PASS ETT --> MDA SUCCESSFUL GLIDESCOPE #4 WITH GRADE 1 VIEW ETT 8.0 AT [facility] Migraine Obesity Renal cancer S/P RIGHT NEPHRECTOMY 04/2018; NO CHEMO OR RADIATION Vitamin D deficiency Surgical History History of cholecystectomy Hx of kidney removal Family History Family/Other Family history of diabetes mellitus Grandmother Family history of diabetes mellitus Other Cancer Social History Smoking Status: Never smoker Second Hand Exposure: Yes; Do You Dip or Chew Tobacco: Yes; Hx Alcohol Use: No Hx Substance Use: Yes Substance Use Type Other:: medically marijuana Preferred Language: Greenlandic Communication Ability: Effective Visual Impairment: No Limitations Research Contracts Supervisor Required: No Beliefs That Will Affect Care: None Current Living Situation: Family Feels Safe at Home: Yes Safety Concerns: Feels Safe At This Time Assistive Devices: None Review of Systems All systems reviewed & are unremarkable except as noted in HPI & below Physical Exam Constitutional: WD/WN, vitals as above Respiratory: normal respiratory effort, lungs clear to auscultation Cardiovascular: RRR, no murmur, no edema Gastrointestinal (Abdomen): normal bowel sounds, soft, nontender, no hepatosplenomegaly ASA Classification ASA ASA2 Results & Data Vital Signs (Past 12 Hours) Vital Signs Temp Pulse Resp BP Pulse Ox O2 Del Method 03/17/23 12:24 36.7 C 70 18 134/83 100 Room Air 03/17/23 07:39 36.6 C 78 16 121/79 100 Room Air 03/17/23 03:59 36.8 C 83 18 118/79 99 Room Air Code Status & VTE Plan VTE Prophylaxis Plan VTE Prophylaxis will be ordered: Yes
--- NOTE | 2023-03-17 13:11 | GI REPORT ---
Patient Name: Elvin Mcmullen Procedure Date: 03/17/2023 12:49 PM Date of : 1975 Admit Type: Inpatient Age: 47 Gender: Male Attending MD: Isatu Perdomo MD, Procedure: Colonoscopy Providers: Isatu Perdomo MD Referring MD: Jazzy Lainez Md Indications: Rectal bleeding Medicines: Propofol per Anesthesia Complications: No immediate complications. Estimated Blood Loss: Estimated blood loss: none. Procedure: Pre-Anesthesia Assessment: - Prior to the procedure, a History and Physical was performed, and patient medications and allergies were reviewed. The patient's tolerance of previous anesthesia was also reviewed. The risks and benefits of the procedure and the sedation options and risks were discussed with the patient. All questions were answered, and informed consent was obtained. Prior Anticoagulants: The patient has taken no anticoagulant or antiplatelet agents. ASA Grade Assessment: II - A patient with mild systemic disease. After reviewing the risks and benefits, the patient was deemed in satisfactory condition to undergo the procedure. After I obtained informed consent, the scope was passed under direct vision. Throughout the procedure, the patient's blood pressure, pulse, and oxygen saturations were monitored continuously. The Colonoscope was introduced through the anus and advanced to the cecum, identified by appendiceal orifice and ileocecal valve. The colonoscopy was performed without difficulty. The patient tolerated the procedure well. The quality of the bowel preparation was evaluated using the BBPS ([place] Bowel Preparation Scale) with scores of: Right Colon = 3, Transverse Colon = 3 and Left Colon = 3 (entire mucosa seen well with no residual staining, small fragments of stool or opaque liquid). The total BBPS score equals 9. The ileocecal valve, appendiceal orifice, and rectum were photographed. Findings: Hemorrhoids were found on perianal exam. External and internal hemorrhoids were found during retroflexion. The rectum, recto-sigmoid colon, sigmoid colon, descending colon, splenic flexure, transverse colon, hepatic flexure, ascending colon and cecum appeared normal. Impression: - Hemorrhoids found on perianal exam. - External and internal hemorrhoids. - The rectum, sigmoid colon, descending colon, splenic flexure, transverse colon, hepatic flexure, ascending colon, cecum and recto-sigmoid colon are normal. - No specimens collected. Recommendation: - Patient has a contact number available for emergencies. The signs and symptoms of potential delayed complications were discussed with the patient. Return to normal activities tomorrow. Written discharge instructions were provided to the patient. - Resume previous diet. - Continue present medications. - Repeat colonoscopy in 10 years for screening purposes. - Return to GI office PRN. Isatu Perdomo MD 03/17/2023 1:10:41 PM Note Initiated On: 03/17/2023 12:49 PM Number of Addenda: 0 I attest to the content of the Intraoperative Record and orders documented therein, exceptions below {[id number]}
--- NOTE | 2023-03-17 13:13 | Anesthesiology Progress Note ---
Date of Service March 17, 2023 Anesthesia Post Procedure Vital Signs Vital Signs: Temp Pulse Pulse Pulse Resp BP BP 03/17/23 12:24 36.7 C 70 18 134/83 03/17/23 07:39 36.6 C 78 16 121/79 03/17/23 03:59 36.8 C 83 18 118/79 03/16/23 23:20 85 03/16/23 23:36 36.7 C 78 18 132/76 03/16/23 22:01 37.1 C 84 20 120/79 03/16/23 16:11 36.9 C 69 18 115/71 03/16/23 15:23 86 Pulse Ox O2 Del Method 03/17/23 12:24 100 Room Air 03/17/23 07:39 100 Room Air 03/17/23 03:59 99 Room Air 03/16/23 23:20 03/16/23 23:36 98 Room Air 03/16/23 22:01 98 Room Air 03/16/23 16:11 97 Room Air 03/16/23 15:23 Transfer of Care Handoff Completed per policy Notes Mental Status: alert / awake / arousable Patient Amnestic to Procedure: Yes Nausea / Vomiting: adequately controlled Pain: adequately controlled Airway Patency, RR, SpO2: stable & adequate BP & HR: stable & adequate Hydration State: stable & adequate Anesthetic Complications: no major complications apparent
--- NOTE | 2023-03-17 13:15 | Gastroenterology Progress Note ---
Date of Service March 17, 2023 Assessment & Plan (1) Rectal bleeding: Plan Can go home from my standpoint. Needs to consider hemorrhoidectomy Admission and Anticipated Discharge Date Admission Date: March 16, 2023 Subjective colonoscopy normal except hemorrhoids Results & Data Vital Signs (Past 12 Hours) Vital Signs Temp Pulse Resp BP Pulse Ox O2 Del Method 03/17/23 12:24 36.7 C 70 18 134/83 100 Room Air 03/17/23 07:39 36.6 C 78 16 121/79 100 Room Air 03/17/23 03:59 36.8 C 83 18 118/79 99 Room Air
--- NOTE | 2023-03-17 15:03 | Discharge Summary ---
Date of Service March 17, 2023 Admission HPI Per Admitting Provider 47 year old man admitted with anemia related to rectal bleeding. We plan colonoscopy Principal Diagnosis Acute blood loss anemia, Hemorrhoidal lower GI bleed Discharge Exam Constitutional WD/WN, vitals as above Respiratory normal respiratory effort, lungs clear to auscultation Cardiovascular RRR, no murmur, no edema Gastrointestinal (Abdomen) normal bowel sounds, soft, nontender, no hepatosplenomegaly Discharge Data Allergies Allergy/AdvReac Type Severity Reaction Status Date / Time No Known Drug Allergies Allergy Unknown Verified 03/15/23 22:45 Consultations 03/15/23 23:24 ED Decision to Admit Stat 03/16/23 04:39 Consult Gastroenterology Routine Procedures Performed Operation Date: 03/17/23 16:30 Actual Procedures p Colonoscopy - Isatu Perdomo Jr, MD Ordered Studies 03/16/23 04:39 CT abd pelvis oral con only Routine Hospital Course (1) Rectal bleedin-year-old male presenting with 2 weeks of ongoing rectal bleeding and symptomatic anemia Hgb = 7.4, HCT = 24. Last checked 02/24/2023 Hgb = 11.7, HCT = 36.1. Patient does report constipation with straining. Symptomatic anemia with dizziness, lightheadedness and syncope reported. Admitted to medical with telemetry and had no arrhythmias on tele -transfused 2 units of blood and hgb came up to 9.[address] of the abdomen/pel--> negative -GI consulted and had colon prep and colonoscopy-bleeding resolved and found to have hemorrhoids non bleeding, otherwise colon normal remained HD stable and was anxious for discharge immediately after colonoscopy and didn't want to eat prior to leaving--> no nausea, no abd pain, bleeding resolved -GI recommends Surgery referral to eval for hemorrhoidectomy-gave name of Dr. Davison -recommend adding docusate bid and Fibercon to prevent future hemorrhoidal bleeding Dc to home Patient with history of renal cell carcinoma. Reports that he is to follow-up with oncology. Appointment has not been scheduledpatient somewhat lost to follow-up during the COVID-19 pandemic. Should reestablish with oncology and follow as directed Total Time Total Time Spent Total Time Spent (In Minutes): 35 min Discharge Plan Discharge Items Patient Disposition: Home - Self-Care Reason For Visit: LGIB Discharge Diagnosis: Acute blood loss anemia, lower GI bleeding from hemorrhoids Condition on Discharge: Good Activity: Resume your previous activity Non-emergency contact: Primary Care Provider and Surgeon Call non-emergency contact if: you have any medication questions and your symptoms worsen Follow-up/Referrals: Benigno Santo III, MARIA ESTHER [Primary Care Provider] - (Follow up within 1-2 weeks.) Garland Davison MD, FACS [Surgeon] - (Please call to schedule an appointment to discuss a surgery to remove your hemorrhoids.) Diet: Regular Diet Comment: high fiber diet Addtl Attending Provider Instructions: You were admitted for bleeding from your hemorrhoids and were given a blood transfusion. You had a colonoscopy which showed hemorrhoids but fortunately the bleeding stopped with the bowel prep. You should continue on stool softeners and take a fiber supplement to keep your hemorrhoids from bleeding again in the future. Please schedule an appointment with the Surgeon to discuss a surgery to remove your hemorrhoids to keep this from happening again. Pending Studies at Discharge: No Stand-Alone Forms: My [facility] creads, Smoking Cessation Medications and DC Order Prescriptions: New docusate sodium 100 mg capsule 100 mg PO BID Qty: 60 0RF Rx Instructions: OTC calcium polycarbophil [FiberCon] 625 mg tablet 625 mg PO DAILY Qty: 30 0RF Rx Instructions: OTC Continued multivitamin Tablet 1 tab PO DAILY Discontinued pantoprazole 40 mg tablet,delayed release (DR/EC) 40 mg PO DAILY Qty: 90 1RF Discharge Orders: Discharge Order (Routine); Ordered 03/17/23 Ordered By: Jazzy Lainez Admission Data Admit Date/Time: 03/16/23 00:32 Attending Provider: Jazzy Lainez Admit Provider: Margy Villanueva Primary Care Provider: Benigno Santo III Other Providers: Margy Villanueva ; Isatu Perdomo Jr Other Interventions: Discharge Summary Assessment (RN) Last Done: 03/17/23 14:15 Coding Level of Care Code 77325 INP/OBS DISCH >30 MIN Diagnoses Rectal bleeding K62.5
== END 2023-03-17 15:30 | disposition home or self-care (01) | DRG 378 ==
LOC: ED 20:12 → SUATTDRO 03-16 00:32 → INTOOBSV 03-16 00:32 → 2S 03-16 00:32 → 2N 03-16 23:12